=== PATIENT | female | born 1960 | race Caucasian/White ===

== ENCOUNTER 2020-05-22 10:59 | Day surgery (SDC) | payer BC ==
[~2020-05-22 10:59] MED LIST: Lactated Ringers 1,000 ML IV SCH; Sodium Chloride 0.9% 10 ML SDV IV PRN; Sodium Chloride 0.9% 10 ML Syringe FLUSH PRN; Sodium Chloride 0.9% 2.5 ML Syringe FLUSH PRN
[2020-05-22] MEDS ORDERED: Propofol 200 MG/20 ML SDV ONE ×2 (11:14→13:21)
[2020-05-22] MEDS ORDERED: fentaNYL 100 MCG/2 ML SDV ONE (11:15)
[2020-05-22] MEDS ORDERED: Midazolam 1 MG/ML 2 ML SDV ONE (11:15)
[2020-05-22] MEDS ORDERED: Lidocaine 2% 5 ML SDV ONE (11:15)
--- NOTE | 2020-05-22 11:38 | PCM.PREANE ---
Preanesthetic Assessment - Anesthesia/Transfusion/Family Hx Anesthesia History: Prior Anesthesia Without Reaction Family History of Anesthesia Reaction: No Transfusion History: No Prior Transfusion(s) - Review of Systems General: No Symptoms Pulmonary: No Symptoms Cardiovascular: No Symptoms Gastrointestinal: No Symptoms Neurological: No Symptoms Other: Reports: None - Physical Assessment NPO Status Date: 05/22/20 NPO Status Time: 00:05 Vital Signs: Last Vital Signs Temp 97.5 F 05/22/20 11:00 Pulse 81 05/22/20 11:00 Resp 15 05/22/20 11:00 BP 110/67 05/22/20 11:00 Pulse Ox 96 05/22/20 11:00 Height: 5 ft 7 in Weight: 178 lb ASA Class: 2 Mental Status: Alert & Oriented x3 Airway Class: Mallampati = 2 Dentition: Reports: Normal Dentition ROM/Head Extension: Full Lungs: Clear to Auscultation, Normal Respiratory Effort Cardiovascular: Regular Rate, Regular Rhythm - Allergies Allergies/Adverse Reactions: Allergies Allergy/AdvReac Type Severity Reaction Status Date / Time amoxicillin [From Augmentin] Allergy Anaphylactic Verified 05/15/20 11:00 Shock clavulanic acid Allergy Anaphylactic Verified 05/15/20 11:00 [From Augmentin] Shock codeine Allergy Itching Verified 05/15/20 11:00 meperidine [From Demerol] Allergy Itching Verified 05/15/20 11:01 Opioids-Meperidine and Allergy Itching Verified 05/15/20 11:00 Related Penicillins Allergy Anaphylactic Verified 05/15/20 11:00 Shock propoxyphene Allergy Itching Verified 05/15/20 11:00 - Anesthesia Plan Pre-Op Medication Ordered: None - Acknowledgements Anesthesia Type Planned: General Anesthesia Pt an Appropriate Candidate for the Planned Anesthesia: Yes Alternatives and Risks of Anesthesia Discussed w Pt/Guardian: Yes Pt/Guardian Understands and Agrees with Anesthesia Plan: Yes Additional Comments: npo after mn tob none etoh none hx depression fibromyalgia head aches no cv problems bmi 28 par no questions PreAnesthesia Questionnaire HEENT History: Reports: Other (See Below) Other HEENT History: wears glasses Cardiovascular History: Reports: Other (See Below) Other Cardiovascular History: states she thinks she has a murmur- occasionally has palpitations- has not been diagnosed Gastrointestinal History: Reports: None Genitourinary History: Reports: Renal Calculus [employer] History: Reports: Musculoskeletal History: Reports: Arthritis, Back Pain, Chronic, Fibromyalgia, Neck Pain, Chronic Neurological History: Reports: Vertigo, Other (See Below) Other Neuro History: hx of motion sickness and claustrophobia Endocrine/Metabolic History: Reports: Hypothyroidism Hematologic History: Reports: Transfusion Reaction Other Hematologic History: had blood transfusion after first child was delivered- had bad reaction due to being allergic to WBC's She requires "washed" blood - Past Surgical History Head Surgeries/Procedures: Reports: None HEENT Surgical History: Reports: Naso-Sinus Surgery GI Surgical History: Reports: Colonoscopy Female Surgical History: Reports: Hysterectomy, Lithotripsy/ESWL Other Female Surgeries/Procedures: Cystocele repair Musculoskeletal Surgical History: Reports: Other (See Below) Other Musculoskeletal Surgeries/Procedures:: Closed reduction fx leg - SUBSTANCE USE Tobacco Use Status *Q: Never Tobacco User Recreational Drug Use History: No - HOME MEDS Home Medications: Home Meds Levothyroxine Sodium [Levothyroxine] 75 mcg PO QAM 05/15/20 [History] Multivitamin 1 tab PO DAILY 05/15/20 [History] estradioL [Vivelle-Dot] 0.05 mg TRDERM ASDIRECTED 05/15/20 [History] - CURRENT (IN HOUSE) MEDS Current Meds: Current Medications Lactated Ringer's (Ringers, Lactated) 1,000 mls @ 125 mls/hr IV ASDIRECTED JYOTHI Last Admin: 05/22/20 11:21 Dose: 125 mls/hr Documented by: Sodium Chloride (Sodium Chloride 0.9% 10 Ml Syringe) 10 ml FLUSH ASDIRECTED PRN PRN Reason: Keep Vein Open Sodium Chloride (Sodium Chloride 0.9% 2.5 Ml Syringe) 2.5 ml FLUSH ASDIRECTED PRN PRN Reason: Keep Vein Open Sodium Chloride (Sodium Chloride 0.9% 10 Ml Syringe) 10 ml FLUSH ASDIRECTED PRN PRN Reason: Keep Vein Open Sodium Chloride (Sodium Chloride 0.9% 2.5 Ml Syringe) 2.5 ml FLUSH ASDIRECTED PRN PRN Reason: Keep Vein Open Sodium Chloride (Sodium Chloride 0.9% 10 Ml Sdv) 10 ml IV ASDIRECTED PRN PRN Reason: IV Use Discontinued Medications Fentanyl (Fentanyl 100 Mcg/2 Ml Sdv) Confirm Administered Dose 100 mcg .ROUTE .STK-MED ONE Stop: 05/22/20 11:16 Lidocaine (Lidocaine 2% 5 Ml Sdv) Confirm Administered Dose 5 ml .ROUTE .STK-MED ONE Stop: 05/22/20 11:16 Midazolam HCl (Midazolam 1 Mg/Ml 2 Ml Sdv) Confirm Administered Dose 2 mg .ROUTE .STK-MED ONE Stop: 05/22/20 11:16 Propofol (Propofol 200 Mg/20 Ml Sdv) Confirm Administered Dose 400 mg .ROUTE .STK-MED ONE Stop: 05/22/20 11:15
--- NOTE | 2020-05-22 13:30 | PCM.OPNOTE ---
- General Post-Op/Procedure Note Date of Surgery/Procedure: 05/22/20 Operative Procedure(s): Screening colonoscopy Findings: Normal colonoscopy Pre Op Diagnosis: Screening colonoscopy Post-Op Diagnosis: Normal colonoscopy Anesthesia Technique: MAC Primary Surgeon: Alexa Davis Condition: Good
--- NOTE | 2020-05-22 13:53 | PCM.POSTAN ---
POST ANESTHESIA ASSESSMENT - MENTAL STATUS Mental Status: Alert (no anesthetic problems), Oriented - VITAL SIGNS Vital Signs: Last Vital Signs Temp 97.5 F 05/22/20 11:00 Pulse 58 L 05/22/20 13:44 Resp 14 05/22/20 13:44 BP 99/59 L 05/22/20 13:44 Pulse Ox 96 05/22/20 13:44 - RESPIRATORY Respiratory Status: Respiratory Rate WNL, Airway Patent, O2 Saturation Stable - CARDIOVASCULAR CV Status: Pulse Rate WNL, Blood Pressure Stable - GASTROINTESTINAL GI Status: No Symptoms - POST OP HYDRATION Hydration Status: Adequate & Stable
--- NOTE | 2020-05-22 14:28 | PCM48HPAN ---
Post Anesthesia Note - EVALUATION WITHIN 48HRS OF ANESTHETIC Vital Signs in Normal Range: Yes Patient Participated in Evaluation: Yes Respiratory Function Stable: Yes Airway Patent: Yes Cardiovascular Function Stable: Yes Hydration Status Stable: Yes Pain Control Satisfactory: Yes Nausea and Vomiting Control Satisfactory: Yes Mental Status Recovered: Yes Vital Signs: Last Vital Signs Temp 97.7 F 05/22/20 13:49 Pulse 66 05/22/20 13:49 Resp 14 05/22/20 13:49 BP 104/56 L 05/22/20 13:49 Pulse Ox 97 05/22/20 13:49
--- NOTE | 2020-05-23 19:54 | OR ---
SURGEON: ALEXA DAVIS MD DATE OF PROCEDURE: 05/22/2020 PREOPERATIVE DIAGNOSIS: Screening colonoscopy. POSTOPERATIVE DIAGNOSIS: Screening colonoscopy. PROCEDURE PERFORMED: Screening colonoscopy. PRIMARY SURGEON: Alexa Davis MD ANESTHESIA: MAC. INSTRUMENT USED: Olympus colonoscope. EXTENT OF EXAM: To the cecum. PREPARATION: Good. LIMITATIONS: None. INDICATIONS FOR EXAMINATION: The patient is a 59-year-old female who presents for a screening colonoscopy. I explained the procedure, expected perioperative course, and the risks. She verbalized understanding and wishes to proceed. PROCEDURE IN DETAIL: The patient was brought to the endoscopy suite and placed in a left lateral decubitus position. A time-out was completed verifying the patient's name, age, date of , allergies, and procedure to be performed. Monitored anesthesia care was induced and continuous oxygen was provided via nasal cannula throughout the procedure. After adequate sedation was achieved, a digital rectal exam was performed. This exam was within normal limits. A well-lubricated colonoscope was inserted in the rectum and advanced under direct visualization to the level of the cecum. The cecum was identified by both visual and anatomic landmarks. A photograph was taken of the cecal cap; however, I was unable to retroflex the scope within the cecum due to looping of the scope more proximally. The scope was then fully withdrawn while examining the color, texture, anatomy, and integrity of mucosa from the cecum to the anal canal. The patient was found to have a normal colonic mucosa with no abnormalities identified. The scope was brought into the rectum and retroflexed to allow visualization of the anal canal opening. This appeared normal and a photograph was taken. The scope was straightened out and fully withdrawn. The cecum to anus time was 9 minutes. The patient tolerated the procedure well and was transferred to the PACU in stable condition. ENDOSCOPIC DIAGNOSIS: Normal colonoscopy. RECOMMENDATIONS: Follow up in clinic in 10 years. RACQUEL / ROLANDO /[id number]
== END 2020-05-22 14:30 | disposition home or self-care (01) ==
LOC: MW.SDS 10:59
PROVIDERS: ATTEND Surgery
DX: Z12.11 Encounter for screening for malignant neoplasm of colon (principal); E03.9 Hypothyroidism, unspecified; Z88.8 Allergy status to other drugs, medicaments and biological substances; Z88.0 Allergy status to penicillin; Z79.899 Other long term (current) drug therapy; Z88.5 Allergy status to narcotic agent; Z98.890 Other specified postprocedural states; Z88.1 Allergy status to other antibiotic agents; Z79.890 Hormone replacement therapy
CPT/HCPCS: 45378; J2250; J2704; J3010; J7120; 00812

== ENCOUNTER 2022-06-13 11:35 | Emergency (ER) | payer BC ==
[2022-06-13] MEDS ORDERED: Ketorolac 30 MG/ML SDV IVPUSH ONE (12:31)
[2022-06-13] MEDS ORDERED: Sodium Chloride 0.9% 1,000 ML IV ONE (12:31)
[2022-06-13 12:58] LABS: APPEARANCE,URINE CLOUDY; BILIRUBIN,URINE NEGATIVE (NEGATIVE); COLOR,URINE YELLOW; GLUCOSE,URINE NEGATIVE (NEGATIVE); KETONES,URINE TRACE mg/dL (NEGATIVE); LEUKOCYTE ESTERASE,URINE MODERATE (NEGATIVE); NITRITE,URINE NEGATIVE (NEGATIVE); OCCULT BLOOD,URINE LARGE (NEGATIVE); PH,URINE 7.5 (5.0-8.0); PROTEIN,URINE NEGATIVE (NEGATIVE); UROBILINOGEN,URINE 0.2 EU/dL (<2.0)
[2022-06-13 13:05] LABS: BACTERIA,URINE MODERATE (NEGATIVE); EPITHELIAL CELLS,URINE FEW (NONE-FEW); HYALINE CASTS,URINE FEW (0-2/LPF); MUCUS,URINE FEW (NONE-MOD); RBC,URINE 30-40 (0-2/HPF); SQUAMOUS EPITHELIAL CELLS,UR FEW
[2022-06-13 14:36] LABS: BASOPHILS PERCENT AUTO 0.2 % (0.0-1.5); EOSINOPHILS ABSOLUTE AUTO 0.1 K/uL (0.0-0.7); EOSINOPHILS PERCENT AUTO 0.9 % (0.0-7.0); HEMATOCRIT 28.2 % (36.0-46.0); HEMOGLOBIN 9.2 g/dL (12.0-16.0); LYMPHOCYTES ABSOLUTE AUTO 0.5 K/uL (0.6-2.4); LYMPHOCYTES PERCENT AUTO 4.9 % (16.0-40.0); MEAN CORPUSCULAR HEMOGLOBIN 29.3 pg (27.0-32.0); MEAN CORPUSCULAR HGB CONC 32.6 g/dL (31.0-37.0); MEAN CORPUSCULAR VOLUME 89.8 fL (80.0-98.0); MONOCYTES ABSOLUTE AUTO 1.3 K/uL (0.0-0.8); MONOCYTES PERCENT AUTO 14.2 % (0.0-15.0); NEUTROPHILS ABSOLUTE AUTO 7.5 K/uL (1.4-5.7); NEUTROPHILS PERCENT AUTO 79.8 % (48.0-80.0); NRBC ABSOLUTE 0 K/uL; PLATELET COUNT,PLT 224 K/uL (150-400); RED BLOOD CELL COUNT 3.14 M/uL (4.30-5.90); WHITE BLOOD CELL COUNT,WBC 9.35 K/uL (4.0-11.0)
[2022-06-13 14:49] LABS: A/G RATIO 0.7 (0.9-1.6); ALBUMIN 2.4 g/dL (3.4-5.0); BILIRUBIN TOTAL 0.6 mg/dL (0.2-1.0); CARBON DIOXIDE,CO2 24.1 mmol/L (21.0-32.0); CREATININE 0.9 mg/dL (0.6-1.0); EST CRCL DRUG DOSING (CG) 61.45 mL/min; POTASSIUM,K 3.8 mmol/L (3.5-5.1)
[2022-06-13] MEDS ORDERED: cefTRIAXone 1 GM in Sodium Chloride 0.9% 50 ML IV ONE (14:59)
[2022-06-13] MEDS ORDERED: Acetaminophen 500 MG Tab PO ONE (18:38)
[2022-06-13] MEDS ORDERED: traMADol 50 MG Tab PO ONE (18:39)
== END 2022-06-13 20:55 ==
LOC: MW.ED 11:35
DX: N28.89 Other specified disorders of kidney and ureter (principal); E03.9 Hypothyroidism, unspecified; Z88.0 Allergy status to penicillin; Z88.1 Allergy status to other antibiotic agents; Z88.5 Allergy status to narcotic agent; Z88.8 Allergy status to other drugs, medicaments and biological substances; Z79.899 Other long term (current) drug therapy
CPT/HCPCS: 36415; 74176; 80053; 81001; 85025; 87086; 96361; 96365; 96375; 99285; A9270; J0696; J1885; J3490; J7030